=== PATIENT | female | born 1990 | race American Indian/Alaskan Native ===

== ENCOUNTER 2017-06-09 13:41 | Emergency (ER) | payer MEDICAID ==
[2017-06-09 14:03] VITALS: BP 118/71
--- NOTE | 2017-06-09 14:48 | Emergency Department Report ---
Chief Complaint: Chest Pain Stated Complaint: BP HIGH/CHEST PAIN Time Seen by Provider: 06/09/17 14:32 - HPI History of Present Illness: Patient is a 26-year-old female presents to the ED complaining of left to right sided chest pain 2 days She describes pain as sharp, intermittent throughout the day. She denies fevers/chills/nausea/vomiting/dizziness or headache. - ROS Review of Systems: As noted in HPI - Exam Vital Signs: Vital Signs 06/09/17 14:00 Temperature 98.1 F Pulse Rate 93 H Respiratory 18 Rate Blood Pressure 118/71 O2 Sat by Pulse 97 Oximetry Physical Exam: GENERAL: Alert and oriented x3, no apparent distress, Normal Gait, atraumatic. LUNGS: Symetrical with respiration, No wheezing, no rales or crackles, CTAB. HEART: S1, S2 present, regular rate and rhythm without murmur, no rubs, no gallops. Non tender to palpation MSE screening note: Focused history and physical exam performed. Due to findings the following was ordered: ED Medical Decision Making - Medical Decision Making Chest tube protocol ordered. If all labs normal patient can be seen the fast track provider. Y service and by ED physician ED Disposition for MSE Condition: Stable
[2017-06-09 15:12] LABS: Basophils % (Auto) 1.3 % (0.0-1.8); Eosinophils % (Auto) 2.8 % (0.0-4.3); Hematocrit 45.2 % (30.3-42.9); Hemoglobin 14.7 gm/dl (10.1-14.3); Mean Corpuscular HGB Conc 33 % (30-34); Mean Corpuscular Hemoglobin 31 pg (28-32); Mean Corpuscular Volume 95 fl (79-97); Platelet Count 208 K/mm3 (140-440); Red Blood Count 4.78 M/mm3 (3.65-5.03); Red Cell Distribution Width 13.7 % (13.2-15.2); White Blood Count 7.9 K/mm3 (4.5-11.0)
[2017-06-09 15:23] LABS: Anion Gap 16 mmol/L; BUN/Creatinine Ratio 14.28; Blood Urea Nitrogen 10 mg/dL (7-17); Calcium 8.5 mg/dL (8.4-10.2); Carbon Dioxide 24 mmol/L (22-30); Chloride 104.7 mmol/L (98-107); Glucose 101 mg/dL (65-100); Potassium 4.2 mmol/L (3.6-5.0); Sodium 140 mmol/L (137-145)
== END 2017-06-09 16:40 | disposition left against medical advice (07) ==
LOC: ED 13:41
DX: R03.0 Elevated blood-pressure reading, without diagnosis of hypertension (principal); R07.9 Chest pain, unspecified; Z53.21 Procedure and treatment not carried out due to patient leaving prior to being seen by health care provider
CPT/HCPCS: 36415; 80048; 84484; 84703; 85025; 93005; 93010

== ENCOUNTER 2017-09-26 19:55 | Emergency (ER) | payer MEDICAID | END 2017-09-26 21:42 | disposition left against medical advice (07) | LOC: ED 19:55 | DX: Z53.21 Procedure and treatment not carried out due to patient leaving prior to being seen by health care provider (principal) ==